=== PATIENT | female | born 1930 | race Caucasian/White ===

== ENCOUNTER 2016-09-05 19:04 | Inpatient (IN) | payer OTHER ==
--- NOTE | ~2016-09-05 | A ---
[facility] Nutrition Therapy DATE: 09/07/16 Patient: CRIS LOPEZ Physician: AUGUSTIN Address: [address] [place], [place] [email or web address] Room/Bed: [address] [place] [address], Zip: [place] [address] Admit Date: 09/05/16 Date of : 29 Height: 5 4 Weight: 92 42 NUTRITIONAL ASSESSMENT: REASON: Low BMI 86 yo female admitted for UTI, hyperglycemia PMH: Osteoporosis, colonic polyps, CAD, HTN, HLD, recent flu Anthropometrics: Ht: 5'4" Adm wt: 42 kg BMI: 15.9 IBW: 54.5 kg, 77% IBW Labs: BUN 6 Creat 0.5 Ca++ 8.1 Meds: Lipitor, levaquin (IV), fish oil, therapeutic formula, Os-chris + D, vitamin D, zofran I/O & Bowel function: 3405/1200, last BM 09/04 Skin Integrity: Scars BLE Edema: None noted Estimated Nutrition Needs: Increased due to low body weight Diet: Heart healthy Assessment: Chart reviewed, events noted. 86 yo female admitted for UTI, presents with low BMI of 15.9 and is 77% IBW. RD attempted pt interview and pt was asleep in room, wound not awaken for RD and no family in room. RD spoke with RN who reports that the pt's family just left. RN seems to think the pt has a good appetite, and states that she consumed 50% of a sandwich and 100% fruit for lunch. Per information in chart, the pt is [place]. RD will liberalize diet, order supplements and follow up with the pt. Dx: Underweight RT advanced age, possibly inadequate intake AEB BMI 15.9, 77% IBW. Intervention: 1. Liberalize to regular diet 2. Ensure BID Monitoring, Evaluation and Goals: 1. Oral intake; tolerate >50-75% of meals 2. Labs; WNL 3. Weight; promote weight gain, prevent weight loss 4. Skin; prevent breakdown [facility] Nutrition Therapy DATE: 09/07/16 Patient: CRIS LOPEZ Physician: AUGUSTIN Address: [address] [place], [place] [email or web address] Room/Bed: [address] [place] [address], Zip: [place] [address] Admit Date: 09/05/16 Date of : 29 Height: 5 4 Weight: 92 42 Recommendations: 1. Liberalize to a regular diet to promote adequate nutrient intake and weight gain. 2. Ensure BID for supplemental nutrition. 3. Appreciate staff and family encouraging adequate intake as needed. Pt is at mild-moderate nutritional risk. Respectfully, KALPESH JEAN BAPTISTE RD, LD Food and Nutritional Services [facility] cc: client file
--- NOTE | ~2016-09-05 | CR63 ---
[facility]. [facility] A Service of [facility] & [facility] / [facility] RADIOLOGY TEXT RESULTS PATIENT: CRIS LOPEZ LOCATION: [facility] 329-01 : 29 UNIT #: [id number] AGE: [address]: Bruce Arriaga MD SEX: F ORDER DR: [id number] [place] [id number] MR#: [id number] Acc #: [id number] NAME: CRIS LOPEZ : 1930 SEX: F STUDY DATE/TIME: 09/05/2016 19:37 UNIT: SEDOF ROOM: [facility] STUDY DESCRIPTION: CR Chest 2 View Attending Physician: Bruce Arriaga M.D. Ordering Physician: Physician Non-Staff Primary Care Physician: Bruce Arriaga M.D. MEDICAL IMAGING REPORT This report is preliminary unless electronic signature is present. EXAM PA and lateral chest. HISTORY Cough and weakness for 3 weeks. FINDINGS Mild cardiac enlargement. Hyperinflation of both lungs. Mild scattered linear atelectasis or scarring in both lungs. No airspace infiltrates. Mild chronic pleural thickening in the lung apices. Mild right upper thoracic curve. Moderately severe compression fracture of T10 vertebral body. This appears chronic. IMPRESSION No definite acute findings. Hyperinflation of both lungs. Mild scattered linear fibrotic scarring or atelectasis in both lungs. Dictated by... Edmundo Recio M.D. THIS IS AN ELECTRONICALLY VERIFIED REPORT Edmundo Recio M.D. at 09/06/2016 5:16 PM DFL/adeline TD: 09/06/2016 11:41 JOB #: [id number] MEDICAL IMAGING REPORT Page 1 of 1
--- NOTE | ~2016-09-05 | DS ---
Unit #: [id number] #: [id number] Patient: CRIS LOPEZ [id number] [address] [place], [place] [address] [id number] I MR#: [id number] NAME: CRIS LOPEZ ROOM: 329 Age: 86 Sex: F Admission Date: 09/05/2016 : 1930 Discharge Date: 09/08/2016 Attending Physician: Bruce Arriaga M.D. Primary Care Physician: Bruce Arriaga M.D. DISCHARGE SUMMARY TENTATIVE DATE OF DISCHARGE 09/08/2016. PRINCIPAL DISCHARGE DIAGNOSES 1. Urinary tract infection with negative urine culture. 2. Bronchitis. 3. Recent influenza A. 4. Hyponatremia. 5. Osteoporosis. 6. Hypotension. 7. History of colonic polyps. 8. History of coronary artery disease. 9. History of hyperlipidemia. PROCEDURES None. CONSULTANTS None. REASON FOR HOSPITALIZATION The patient is an 86-year-old white female with history of osteoporosis, colonic polyps, coronary artery disease, hypertension, and hyperlipidemia, recently seen in the office about 2 weeks prior to admission with acute influenza A, was treated with Tamiflu. She was recovering, improving, then she started having increased weakness, cough, subjective fever, chills, congestion, went to [facility] Emergency Room, where she had chest x-ray, lab work, and urinalysis that showed evidence of urinary tract infection and she was admitted for same. On admission, her temperature is 99, pulse 113, respirations 18, blood pressure 101/55, and O2 saturation on room air was 95%. White count was 22.3 with a left shift. Hemoglobin and platelets were normal. Sodium was 132, random blood sugar 169, albumin 3, lactic acid was 1.1 but not repeated. Urinalysis showed 2+ leukocytes, 2+ blood, 10 to 25 rbc's, 100 to 200 wbc's, and 1+ bacteria, and the patient again was admitted. HOSPITAL COURSE The patient was admitted to a telemetry bed. Her lisinopril was discontinued. Her atenolol dose was lowered. She was placed on Lovenox for DVT prophylaxis. Flu swab was repeated to make sure she did not develop type B. Urine culture was sent. She was started on IV antibiotics. Labs were followed. Influenza A and B rapid screen were negative. Blood cultures, no growth to date. Chest x-ray from [facility] Unit #: [id number] #: [id number] Patient: CRIS LOPEZ showed no active disease. Urine culture for whatever reason was negative. Repeat urinalysis was normal. Her CBC yesterday showed a white count of 10.9, hemoglobin of 11.2, and platelets were 231. BMP was normal except for calcium of 8.1. This morning's labs are pending, but she appears to be stable for discharge after they have been called to my office. CURRENT MEDICATIONS CoQ10 100 mg p.o. daily, Tylenol 650 p.o. q.6 p.r.n., Humibid DM one p.o. b.i.d., Tenormin 50 mg one-half tablet daily, Pravachol 40 mg p.o. daily, discontinue lisinopril for now, fish oil 1000 mg daily, Ocuvite one p.o. daily, Citracal plus D one p.o. b.i.d., D3 2000 units daily, Levaquin 500 mg daily for an additional 5 days. She will follow up in the office with a CBC, BMP, and repeat urinalysis. She is on a regular diet as tolerates. She is having office visit in 1 week. Dictated by... Bruce Arriaga M.D. SAMIA/alejandro TD: 09/09/2016 01:57 JOB #: [id number] DISCHARGE SUMMARY Page 1 of 1 X Bruce Arriaga MD X DISCHARGE SUMMARY
--- NOTE | ~2016-09-05 | HP ---
Unit #: [id number] #: [id number] Patient: CRIS LOPEZ [id number] [facility]. [place], [place] [address] [id number] I MR#: [id number] NAME: CRIS LOPEZ ROOM: 329 Age: 86 Sex: F Admission Date: 09/05/2016 : 1930 Attending Physician: Bruce Arriaga M.D. Primary Care Physician: Bruce Arriaga M.D. HISTORY AND PHYSICAL HISTORY OF PRESENT ILLNESS An 86-year-old white female with history of osteoporosis, colonic polyps, coronary artery disease, hypertension, and hyperlipidemia, was recently seen in the office about two weeks ago with influenza A. She was recovering then began having increased weakness, cough, subjective fever and chills, and congestion. She went to [facility] Emergency Room. Apparently, there no flu swab was obtained, but she had a chest x-ray, some lab work, and a urinalysis that showed evidence of a urinary tract infection, and she is admitted for same. Patient has no frequency, urgency, dysuria, low back pain, or any other symptoms of urinary tract infection other than the obvious findings in the emergency room. Chest x-ray results are not available in [facility] or in the chart, but per their handwritten note on the ER sheet, it says no infiltrates. The rest of her labs are fairly unremarkable except for a random blood sugar of 169 and a sodium of 132. PAST MEDICAL HISTORY 1. A 50% LAD lesion. 2. Hypertension. 3. Hyperlipidemia. 4. Osteoporosis. 5. Colonic polyps. PAST SURGICAL HISTORY 1. Cataracts bilaterally. 2. Breast biopsy for benign disease. ALLERGIES DOXYCYCLINE AND AMOXICILLIN. MEDICATIONS PRIOR TO ADMISSION 1. Tenormin 50 mg p.o. daily. 2. Lisinopril 20 mg p.o. daily. 3. Pravachol 40 mg p.o. daily. 4. Vitamin D 2000 units p.o. daily. 5. Calcium plus D 1 p.o. b.i.d. 6. Fish oil 1000 mg daily. 7. CoQ10 100 mg daily. 8. Ocuvite 1 tab daily. 9. Vitamin E dose unknown 1 tab daily. SOCIAL HISTORY . Nonsmoker, nondrinker, and no street drug use. Unit #: [id number] #: [id number] Patient: CRIS LOPEZ FAMILY HISTORY Noncontributory. PHYSICAL EXAMINATION ER VITAL SIGNS: Temperature 99, pulse 113, respirations 18, blood pressure 101/55, and room air O2 saturation 95%. HEENT: Unremarkable. NECK: Supple without JVD, bruits, adenopathy, or thyromegaly. CHEST: Clear to auscultation. HEART: Regular rate and rhythm without any murmurs, rubs, or gallops. ABDOMEN: Soft, nondistended, and nontender, with positive bowel sounds and no hepatosplenomegaly. EXTREMITIES: No clubbing, cyanosis, or edema. GENITOURINARY/RECTAL: Deferred. NEUROLOGIC: Gross intact. DIAGNOSTIC STUDIES LABORATORY: White count was 22.3 with a left shift and hemoglobin and platelets were normal. CMP was normal except for a sodium of 132, random blood sugar of 169, and albumin of 3. Lactic acid was 1.1 and not repeated. Urinalysis with 2+ leukocytes, 1+ protein, 1+ ketones, 2+ blood, 10-25 RBCs, 100-200 WBCs, and 1+ bacteria. IMPRESSION 1. Flu-like symptoms. 2. Recent influenza A. 3. Urinary tract infection. 4. Marked leukocytosis. 5. Hyponatremia. 6. Random hyperglycemia. 7. Osteoporosis. 8. History of hypertension with relatively low blood pressures. 9. History of colonic polyps. 10. History of coronary artery disease. 11. History of hyperlipidemia. PLAN Discontinue lisinopril. Decrease dose of atenolol. Lovenox for DVT prophylaxis. Recheck flu swab to make sure she has not acquired type B as the last one was type A. Urine culture sent and IV antibiotics started in the form of Rocephin. Will add Levaquin until the urine culture is back. IV fluids with normal saline. Further evaluation pending results of the above. Dictated by Jan Paulino TD: 09/06/2016 18:07 JOB #: [id number] Unit #: [id number] #: [id number] Patient: CRIS LOPEZ HISTORY AND PHYSICAL Page 1 of 1 X Bruce Arriaga MD HISTORY AND PHYSICAL
[~2016-09-05 19:04] MED LIST: ATENOLOL PO; CEPHALEXIN500 M1 PO; CITRACAL + D CA1 TA1 PO; CO Q10100 MG PO; DARVOCET-N 1001 TA1 DOB; DARVOCET-N 1001 TA1 PO; FISH OIL 1,0001 CAP PO; FISH OIL 1,0001 EAC2 PO; FOSAMAX70 MG PO; LISINOPRIL PO; LISINOPRIL20 MG PO; MACULAR VITAMI1 EACH PO; OCUVITE TABLET1 TAB PO; OYSTER CALCIUM500 MG PO; PRAVACHOL20 MG PO; VITAMIN D32000 UNIT PO
[2016-09-05 19:36] LABS: BASOPHIL% 0.1 % (0-2.5); HEMATOCRIT 38.9 % (35.0-45.0); HEMOGLOBIN 12.8 gm/dL (12.0-16.0); LYMPHOCYTE# 0.7 X10e3 (1.0-3.5); LYMPHOCYTE% 3.3 % (17.0-45.0); MEAN CELL VOLUME 90.2 FL (83-96); MEAN CORPUSCULAR HEMOGLOBIN 29.6 PG (28-34); MEAN CORPUSCULAR HGB CONC 32.8 g/dL (30-36); MEAN PLATELET VOLUME 6.6 FL (6.5-11.5); MONOCYTE# 1.3 X10e3 (0-1.0); MONOCYTE% 5.9 % (3.0-12.0); NEUTROPHIL# 20.2 X10e3 (1.5-7.1); NEUTROPHIL% 90.7 % (40-75); PLATELET COUNT 307 X10e3 (140-420); RED BLOOD COUNT 4.32 X10e (3.90-5.30); RED CELL DISTRIBUTION WIDTH 13.2 % (11.0-15.5); WHITE BLOOD COUNT 22.3 X10e3 (4.0-10.5)
[2016-09-05 19:39] LABS: DIFF IND YES
[2016-09-05 19:50] LABS: PLATELET ESTIMATE NORMAL (NORMAL); RBC NORMAL YES
[2016-09-05 19:54] LABS: BILIRUBIN,TOTAL 1.3 mg/dL (0.2-2.0); CALCIUM SERUM 8.7 mg/dL (8.4-10.2); CREATININE SERUM 0.5 mg/dL (0.6-1.4); POTASSIUM 3.9 mmol/L (3.5-5.1); PROTEIN TOTAL SERUM 6.1 g/dL (6.0-8.3)
[2016-09-05 20:28] LABS: URINE SOURCE CLEAN CATCH
[2016-09-05 20:30] LABS: URINE APPEARANCE CLEAR; URINE BILIRUBIN NEG (NEG); URINE BLOOD 2+ (NEG); URINE COLOR YELLOW; URINE GLUCOSE NEG (NORM); URINE KETONE 1+ (NEG); URINE NITRATE NEG (NEG); URINE PROTEIN 1+ (NEG); URINE UROBILINOGEN 0.2 MG/DL (NORM)
[2016-09-05 20:36] LABS: MICRO INDICATED? YES; URINE LEUKOCYTE ESTERASE 2+ (NEG)
[2016-09-05 20:37] LABS: CULTURE INDICATED? YES; URINE BACTERIA 1+ (NEG); URINE WBC 100-200 /[HPF] (0-5)
[2016-09-05 20:38] LABS: URINE HYALINE CAST 0-2 /[HPF]; URINE MUCUS PRESENT; URINE SQUAMOUS EPITHELIAL CELL OCCAS /[HPF]; URINE TRANSITIONAL EPI CELLS OCCAS /[HPF]
[2016-09-06] MEDS ORDERED: OCUVITE TABLET1 TA1 PO (02:00)
[2016-09-06] MEDS ORDERED: VITAMIN E PO (02:03)
[2016-09-06 08:25] LABS: BASOPHIL% 0.2 % (0-2.5); HEMATOCRIT 35.8 % (35.0-45.0); HEMOGLOBIN 11.7 gm/dL (12.0-16.0); LYMPHOCYTE# 1.1 X10e3 (1.0-3.5); LYMPHOCYTE% 6.3 % (17.0-45.0); MEAN CELL VOLUME 90.5 FL (83-96); MEAN CORPUSCULAR HEMOGLOBIN 29.7 PG (28-34); MEAN CORPUSCULAR HGB CONC 32.8 g/dL (30-36); MEAN PLATELET VOLUME 7.1 FL (6.5-11.5); MONOCYTE# 1.1 X10e3 (0-1.0); MONOCYTE% 6.3 % (3.0-12.0); NEUTROPHIL# 15.5 X10e3 (1.5-7.1); NEUTROPHIL% 87.2 % (40-75); PLATELET COUNT 263 X10e3 (140-420); RED BLOOD COUNT 3.96 X10e (3.90-5.30); RED CELL DISTRIBUTION WIDTH 13.1 % (11.0-15.5); WHITE BLOOD COUNT 17.8 X10e3 (4.0-10.5)
[2016-09-06 08:26] LABS: DIFF IND NO
[2016-09-06 09:02] LABS: CALCIUM SERUM 8.4 mg/dL (8.4-10.2); CREATININE SERUM 0.3 mg/dL (0.6-1.4); POTASSIUM 4.3 mmol/L (3.5-5.1)
[2016-09-06 11:52] LABS: INFLUENZA A NEG (NEG); INFLUENZA B NEG (NEG)
[2016-09-07 07:20] LABS: BASOPHIL% 0.3 % (0-2.5); EOSINOPHIL% 0.1 % (0.0-7.0); HEMOGLOBIN 11.2 gm/dL (12.0-16.0); LYMPHOCYTE# 1.1 X10e3 (1.0-3.5); LYMPHOCYTE% 10.5 % (17.0-45.0); MEAN CORPUSCULAR HEMOGLOBIN 30.5 PG (28-34); MEAN CORPUSCULAR HGB CONC 33.9 g/dL (30-36); MEAN PLATELET VOLUME 7.2 FL (6.5-11.5); MONOCYTE% 9.5 % (3.0-12.0); NEUTROPHIL# 8.7 X10e3 (1.5-7.1); NEUTROPHIL% 79.6 % (40-75); PLATELET COUNT 231 X10e3 (140-420); RED BLOOD COUNT 3.67 X10e (3.90-5.30); RED CELL DISTRIBUTION WIDTH 13.2 % (11.0-15.5); WHITE BLOOD COUNT 10.9 X10e3 (4.0-10.5)
[2016-09-07 07:21] LABS: DIFF IND NO
[2016-09-07 07:54] LABS: CALCIUM SERUM 8.1 mg/dL (8.4-10.2); CREATININE SERUM 0.5 mg/dL (0.6-1.4); POTASSIUM 4.1 mmol/L (3.5-5.1)
[2016-09-08 04:25] LABS: URINE APPEARANCE CLEAR; URINE BILIRUBIN NEG (NEG); URINE BLOOD NEG (NEG); URINE COLOR YELLOW; URINE GLUCOSE NEG (NEG); URINE KETONE NEG (NEG); URINE LEUKOCYTE ESTERASE NEG (NEG); URINE NITRATE NEG (NEG); URINE PROTEIN NEG (NEG); URINE SPECIFIC GRAVITY 1.011 (1.003-1.035); URINE UROBILINOGEN 0.2 MG/DL (NEG)
[2016-09-08 08:05] LABS: HEMATOCRIT 35.2 % (35.0-45.0); HEMOGLOBIN 11.8 gm/dL (12.0-16.0); MEAN CELL VOLUME 90.1 FL (83-96); MEAN CORPUSCULAR HEMOGLOBIN 30.3 PG (28-34); MEAN CORPUSCULAR HGB CONC 33.6 g/dL (30-36); MEAN PLATELET VOLUME 7.2 FL (6.5-11.5); RED BLOOD COUNT 3.9 X10e (3.90-5.30); RED CELL DISTRIBUTION WIDTH 13.5 % (11.0-15.5); WHITE BLOOD COUNT 7.2 X10e3 (4.0-10.5)
[2016-09-08 08:35] LABS: BUN/CREATININE RATIO 12.85; CALCIUM SERUM 8.6 mg/dL (8.4-10.2); CREATININE SERUM 0.7 mg/dL (0.6-1.4); GLOM FILT RATE Estimated 77.9 mL/min (>60); POTASSIUM 3.7 mmol/L (3.5-5.1)
[2016-09-08] MEDS ORDERED: HUMIBID DM1 TAB PO (11:34)
[2016-09-08] MEDS ORDERED: ACETAMINOPHEN650 M1 PO (11:34)
[2016-09-08] MEDS ORDERED: MULTI VITAMIN1 EACH PO (11:35)
[2016-09-08] MEDS ORDERED: LEVAQUIN PO (11:36)
== END 2016-09-08 13:59 | disposition home or self-care (01) | DRG 690 ==
LOC: SED 19:04 → C3A PCU 21:20
PROVIDERS: Hospitalist; Internal Medicine; Nurse Practitioner
PROC: 3E0234Z Introduction of Serum, Toxoid and Vaccine into Muscle, Percutaneous Approach (ICD-10-PCS; principal; 2016-09-07)
DX: N39.0 Urinary tract infection, site not specified (principal); E87.1 Hypo-osmolality and hyponatremia; I10 Essential (primary) hypertension; M81.0 Age-related osteoporosis without current pathological fracture; Z86.010 Personal history of colon polyps; I25.10 Atherosclerotic heart disease of native coronary artery without angina pectoris; E78.5 Hyperlipidemia, unspecified; Z98.42 Cataract extraction status, left eye; Z98.41 Cataract extraction status, right eye; D72.829 Elevated white blood cell count, unspecified; R73.9 Hyperglycemia, unspecified; J40 Bronchitis, not specified as acute or chronic; Z23 Encounter for immunization
CPT/HCPCS: 36415; 71020; 80048; 80053; 81003; 83605; 85025; 85027; 87040; 87086; 87804; 90732; 96374; 96375; 99285; G0009; J0696; J1650; J1956; J2405

== ENCOUNTER → 2016-11-02 | Outpatient (CLI) | payer OTHER ==
[~2016-11-02] MED LIST changes: +ACETAMINOPHEN650 M1 PO; +HUMIBID DM1 TAB PO; +LEVAQUIN PO; +MULTI VITAMIN1 EACH PO; +OCUVITE TABLET1 TA1 PO; +VITAMIN E PO
--- NOTE | ~2016-11-02 | MY11 ---
[facility] A Service of [facility] & [facility] RADIOLOGY TEXT RESULTS PATIENT: CRIS LOPEZ LOCATION: [facility] : 29 UNIT #: [id number] AGE: [address]: Bruce Arriaga MD SEX: F ORDER DR: [id number] [facility] [address] [place], [place] [address] [id number] O MR#: [id number] Acc #: [id number] NAME: CRIS LOPEZ : 1930 SEX: F STUDY DATE/TIME: 11/02/2016 13:03 UNIT: [facility] ROOM: STUDY DESCRIPTION: MY Mammogram Screening Dig Tito Attending Physician: Bruce Arriaga M.D. Ordering Physician: Bruce Arriaga M.D. Primary Care Physician: Bruce Arriaga M.D. MEDICAL IMAGING REPORT This report is preliminary unless electronic signature is present EXAM Digital screening mammogram, 11/02/2016. HISTORY An 86-year-old woman, no risk elevation. Prior aspiration. Annual screening. COMPARISON STUDIES Comparison mammograms date to 06/22/2006 with most recent 09/09/2015 FINDINGS Digital imaging of each breast was completed utilizing a two-view examination of each breast in craniocaudal and mediolateral-oblique projections. Review and interpretation of digital mammograms include a second review in conjunction with FDA-approved CAD device. There is a normal parenchymal presentation bilaterally consistent with the patient's age. There are no breast masses imaged and no parenchymal asymmetry is visualized. There are no suspicious microcalcifications and I see no focal architectural disturbance. ADDENDUM Breast parenchyma is fatty replaced IMPRESSION Negative screening digital mammogram. One-year followup recommended. Patients over the age of 40 are entered into a reminder system with target due date for the next mammogram. A result letter will also be sent to the patient. BIRADS: 1 Negative [facility] A Service of [facility] & [facility] RADIOLOGY TEXT RESULTS PATIENT: CRIS LOPEZ LOCATION: [facility] : 29 UNIT #: [id number] AGE: [address]: Bruce Arriaga MD SEX: F ORDER DR: Dictated by... Osvaldo Barbosa M.D. THIS IS AN ELECTRONICALLY VERIFIED REPORT Osvaldo Barbosa M.D. at 11/02/2016 2:26 PM JUAN/dianna TD: 11/02/2016 14:20 JOB #: [id number] MEDICAL IMAGING REPORT Page 1 of 1 COPY
== END | disposition home or self-care (01) ==
LOC: CWCC 12:24
DX: Z12.31 Encounter for screening mammogram for malignant neoplasm of breast (principal); R92.8 Other abnormal and inconclusive findings on diagnostic imaging of breast
CPT/HCPCS: G0202